=== PATIENT | female | born 1960 | race Caucasian/White ===

== ENCOUNTER → 2022-12-24 | Outpatient (CLI) | payer BC | LOC: LAB SHORT 12:09 → PLD 12:09 | DX: D48.5 Neoplasm of uncertain behavior of skin (principal) | CPT/HCPCS: 88305 ==

== ENCOUNTER → 2023-07-01 | Outpatient (CLI) | payer BC | LOC: LAB 08:16 → LAB SHORT 08:16 | DX: D23.39 Other benign neoplasm of skin of other parts of face (principal) | CPT/HCPCS: 88305 ==